=== PATIENT | female | born 1975 | race African-American/Black ===

== ENCOUNTER 2022-06-26 20:21 | Emergency (ER) | payer MEDICAID, OTHER ==
[~2022-06-26] VITALS: Ht 157.5 cm; Wt 82.0 kg
[2022-06-26 21:48] VITALS: BP_SYST 118
== END 2022-06-27 02:42 | disposition home or self-care (01) ==
LOC: ER 20:21
DX: Z00.00 Encounter for general adult medical examination without abnormal findings (principal); T76.21XA Adult sexual abuse, suspected, initial encounter
CPT/HCPCS: 99281

== ENCOUNTER 2023-04-22 20:52 | Emergency (ER) | payer OTHER ==
[~2023-04-22] VITALS: Ht 157.5 cm; Wt 86.0 kg
[2023-04-22 21:05] VITALS: BP 143/74; PULSE 91; RESP 15; TEMP 98.4; O2SAT 97
[2023-04-23 00:11] LABS: *AMPHETAMINES SCREEN URINE NEGATIVE (NEGATIVE); *BARBITURATES SCREEN URINE NEGATIVE (NEGATIVE); *BENZODIAZEPINES SCREEN URINE NEGATIVE (NEGATIVE); *COCAINE SCREEN URINE NEGATIVE (NEGATIVE); CANNABINOID URINE SCREEN PRESUMPTIVE POSITIVE (NEGATIVE); ECSTASY MDMA SCREEN URINE NEGATIVE (NEGATIVE); METHADONE URINE SCREEN Neg (NEGATIVE); OPIATES URINE SCREEN NEGATIVE (NEGATIVE); PHENCYCLIDINE URINE SCREEN NEGATIVE (NEGATIVE)
== END 2023-04-23 01:03 | disposition home or self-care (01) ==
LOC: ER 20:52
DX: R82.5 Elevated urine levels of drugs, medicaments and biological substances (principal)
CPT/HCPCS: 80305; 99283

== ENCOUNTER 2023-10-31 23:32 | Emergency (ER) | payer OTHER ==
[~2023-10-31] VITALS: Ht 157.5 cm; Wt 90.1 kg
[2023-10-31 23:36] VITALS: O2SAT 100
[2023-11-01 02:00] VITALS: BP 125/79; PULSE 78; RESP 16; TEMP 98.4
[2023-11-02] MEDS ORDERED: TRUV MT (19:54)
[2023-11-02] MEDS ORDERED: METR-167 MT (19:54)
[2023-11-02] MEDS ORDERED: DOXY100T2 MT (19:54)
[2023-11-02] MEDS ORDERED: RALT400T MT (19:54)
== END 2023-11-01 02:05 ==
LOC: ER 23:59
DX: R55 Syncope and collapse (principal); Z98.890 Other specified postprocedural states
CPT/HCPCS: 99283

== ENCOUNTER 2023-11-02 16:55 | Emergency (ER) | payer OTHER ==
[~2023-11-02] VITALS: Ht 167.6 cm; Wt 83.0 kg
[2023-11-02 16:59] VITALS: O2SAT 99
[2023-11-02] MEDS ORDERED: TRUV MT (19:54)
[2023-11-02] MEDS ORDERED: METR-167 MT (19:54)
[2023-11-02] MEDS ORDERED: DOXY100T2 MT (19:54)
[2023-11-02] MEDS ORDERED: RALT400T MT (19:54)
[2023-11-02] MEDS: CEFTRIAXONE SODIUM 500MG VIAL IM ONE (20:42)
[2023-11-02 21:37] LABS: BASOPHILS % 1.1 % (0.0-2.0); EOSINOPHILS % 2.7 % (0.0-5.0); HEMATOCRIT. 32.5 % (36.0-48.0); LYMPHOCYTES % 27.4 % (20.0-50.0); MEAN CORPUSCULAR HEMOGLOBIN 31.1 pg (28.0-32.0); MEAN CORPUSCULAR HGB CONC 33.9 g/dL (31.0-37.0); MEAN CORPUSCULAR VOLUME 91.8 fL (81.0-99.0); MEAN PLATELET VOLUME 7.1 fl (7.4-10.4); MONOCYTES % 6.7 % (2.0-8.0); NEUTROPHILS % 62.1 % (40.0-76.0); PLATELET 345 x1000/uL (130-400); RED BLOOD CELL COUNT 3.54 mill/uL (4.2-5.4); RED CELL DISTRIBUTION WIDTH 14.9 % (11.6-14.6); WHITE BLOOD COUNT 10.5 x1000/uL (4.5-11.0)
[2023-11-02 21:41] LABS: CHLORIDE 110 mEq/L (98-107); POTASSIUM 3.9 mEq/L (3.5-5.1); SODIUM 140 mEq/L (136-145)
[2023-11-02 21:42] LABS: CARBON DIOXIDE 24 mEq/L (21-32)
[2023-11-02 21:43] LABS: CALCIUM 9.4 mg/dL (8.7-10.4)
[2023-11-02 21:47] LABS: CREATININE 0.7 mg/dL (0.6-1.0); GLUCOSE 119 mg/dL (70-105)
[2023-11-02 21:48] LABS: UREA NITROGEN BLOOD 9 mg/dL (9-23)
[2023-11-02 21:49] LABS: ALANINE AMINOTRANSFERASE 12 IU/L (10-49); ASPARTATE AMINOTRANSFERASE 16 IU/L (<34)
[2023-11-02 21:50] LABS: BILIRUBIN DIRECT < 0.1 mg/dL (<=3.0); BILIRUBIN TOTAL 0.2 mg/dL (0.1-1.0); PROTEIN TOTAL 6.3 g/dL (6.0-8.3)
[2023-11-02 22:05] LABS: HEPATITIS B SURFACE ANTIGEN NEGATIVE (Negative)
[2023-11-02 22:07] LABS: HCG SCREEN NEGATIVE
[2023-11-02 22:26] LABS: HEPATITIS A AB IGM NEGATIVE (Negative)
[2023-11-02 22:27] LABS: HEPATITIS B CORE AB IGM NEGATIVE (Negative); HEPATITIS C AB NON REACTIVE (Neg) (Negative)
[2023-11-02 22:45] VITALS: BP 133/65; PULSE 78; RESP 17; TEMP 98.4
== END 2023-11-02 22:50 | disposition home or self-care (01) ==
LOC: ER 16:55
DX: T74.21XA Adult sexual abuse, confirmed, initial encounter (principal); R68.89 Other general symptoms and signs; X58.XXXA Exposure to other specified factors, initial encounter
CPT/HCPCS: 80076; 80048; 84703; 85025; 87340; 86592; 36415; 86705; 86709; 96372; 99283; J0696; Z7610

== ENCOUNTER 2023-11-11 04:23 | Emergency (ER) | payer OTHER ==
[~2023-11-11] VITALS: Ht 157.5 cm; Wt 100.0 kg
[~2023-11-11 04:23] MED LIST: DOXY100T2 MT; METR-167 MT; RALT400T MT; TRUV MT
[2023-11-11 04:46] VITALS: BP 125/51; PULSE 72; RESP 16; TEMP 98.3; O2SAT 97
[2023-11-11] MEDS ORDERED: DIPH28.33 TP (05:59)
== END 2023-11-11 06:17 | disposition home or self-care (01) ==
LOC: ER 04:33
DX: L50.9 Urticaria, unspecified (principal)
CPT/HCPCS: 99282

== ENCOUNTER 2023-11-19 06:18 | Emergency (ER) | payer OTHER ==
[~2023-11-19] VITALS: Ht 157.5 cm; Wt 91.0 kg
[~2023-11-19 06:18] MED LIST changes: +DIPH28.33 TP
[2023-11-19 06:31] VITALS: O2SAT 100
[2023-11-19 06:48] VITALS: BP 139/81; PULSE 81; RESP 14; TEMP 98.2; O2SAT 98
== END 2023-11-19 10:33 | disposition home or self-care (01) ==
LOC: ER 06:40
DX: T76.21XA Adult sexual abuse, suspected, initial encounter (principal); F12.10 Cannabis abuse, uncomplicated
CPT/HCPCS: 99281

== ENCOUNTER 2023-11-21 06:26 | Emergency (ER) | payer OTHER ==
[~2023-11-21] VITALS: Ht 160 cm; Wt 91.0 kg
[2023-11-21 06:29] VITALS: BP 120/75; O2SAT 96
[2023-11-21 06:30] VITALS: PULSE 100; RESP 16; O2SAT 99
[2023-11-21 07:14] VITALS: TEMP 98.5
[2023-11-21] MEDS: ACETAMINOPHEN 325MG TABLET PO ONE (07:14)
== END 2023-11-21 09:12 | disposition home or self-care (01) ==
LOC: ER 06:26
DX: R21 Rash and other nonspecific skin eruption (principal); F12.10 Cannabis abuse, uncomplicated; Z79.899 Other long term (current) drug therapy; Z91.410 Personal history of adult physical and sexual abuse
CPT/HCPCS: 99282

== ENCOUNTER 2024-05-22 15:39 | Emergency (ER) | payer OTHER ==
[~2024-05-22] VITALS: Ht 167.6 cm; Wt 90.7 kg
[2024-05-22 15:40] VITALS: O2SAT 99
[2024-05-22 15:44] VITALS: BP 137/89; PULSE 78; RESP 16; TEMP 36.9; O2SAT 98
[2024-05-22 17:09] LABS: CLARITY URINE CLEAR (CLEAR); COLOR URINE YELLOW (YELLOW); GLUCOSE URINE NEGATIVE (NEGATIVE); KETONES URINE NEGATIVE (NEGATIVE); LEUKOCYTE ESTERASE URINE NEGATIVE (NEGATIVE); NITRITE URINE NEGATIVE (NEGATIVE); OCCULT BLOOD URINE NEGATIVE (NEGATIVE); PROTEIN URINE NEGATIVE (NEGATIVE); SPECIFIC GRAVITY URINE 1.004 (1.005-1.030); UROBILINOGEN URINE 0.2 E.U./dL (0.2-1.0)
[2024-05-22 17:18] LABS: BASOPHILS % 1.1 % (0.0-2.0); EOSINOPHILS % 1.1 % (0.0-5.0); HEMATOCRIT. 33.7 % (36.0-48.0); HEMOGLOBIN. 11.1 g/dL (12.0-16.0); LYMPHOCYTES % 26.7 % (20.0-50.0); MEAN CORPUSCULAR HEMOGLOBIN 28.9 pg (28.0-32.0); MEAN CORPUSCULAR VOLUME 87.6 fL (81.0-99.0); MEAN PLATELET VOLUME 6.8 fl (7.4-10.4); MONOCYTES % 6.6 % (2.0-8.0); NEUTROPHILS % 64.5 % (40.0-76.0); PLATELET 468 x1000/uL (130-400); RED BLOOD CELL COUNT 3.84 mill/uL (4.2-5.4); RED CELL DISTRIBUTION WIDTH 16.4 % (11.6-14.6); WHITE BLOOD COUNT 10.4 x1000/uL (4.5-11.0)
[2024-05-22 17:25] LABS: CHLORIDE 107 mEq/L (98-107); POTASSIUM 3.4 mEq/L (3.5-5.1); SODIUM 142 mEq/L (136-145)
[2024-05-22 17:26] LABS: CALCIUM 9.5 mg/dL (8.7-10.4); CARBON DIOXIDE 28 mEq/L (21-32)
[2024-05-22 17:31] LABS: CREATININE 0.8 mg/dL (0.6-1.0); GLUCOSE 84 mg/dL (70-105); UREA NITROGEN BLOOD 7 mg/dL (9-23)
[2024-05-22 17:32] LABS: ALANINE AMINOTRANSFERASE 19 IU/L (10-49)
[2024-05-22 17:33] LABS: ALBUMIN 4.4 g/dL (3.2-4.8); ASPARTATE AMINOTRANSFERASE 20 IU/L (<34); BILIRUBIN TOTAL 0.3 mg/dL (0.1-1.0); PROTEIN TOTAL 7.3 g/dL (6.0-8.3)
[2024-05-22 17:38] LABS: BILIRUBIN DIRECT < 0.1 mg/dL (<=3.0)
[2024-05-22 17:59] LABS: HEPATITIS B SURFACE ANTIGEN NEGATIVE (Negative)
[2024-05-22 18:01] LABS: HIV 1/2 AB P24AG Negative (Negative)
[2024-05-22 18:19] LABS: HEPATITIS A AB IGM NEGATIVE (Negative); HEPATITIS B CORE AB IGM NEGATIVE (Negative); HEPATITIS C AB NON REACTIVE (Neg) (Negative)
[2024-05-22] MEDS ORDERED: METR-167 MT (18:49)
[2024-05-22] MEDS ORDERED: TRUV MT (18:49)
[2024-05-22] MEDS ORDERED: RALT400T MT (18:49)
[2024-05-22] MEDS ORDERED: DOXY100T2 MT (18:49)
[2024-05-22] MEDS: CEFTRIAXONE SODIUM 500MG VIAL IM ONE (19:09)
== END 2024-05-22 19:11 | disposition home or self-care (01) ==
LOC: ER 15:39
DX: T76.21XA Adult sexual abuse, suspected, initial encounter (principal); F12.90 Cannabis use, unspecified, uncomplicated; Z79.899 Other long term (current) drug therapy; Z79.624 Long term (current) use of inhibitors of nucleotide synthesis; Y08.89XA Assault by other specified means, initial encounter; Y93.89 Activity, other specified; Y92.89 Other specified places as the place of occurrence of the external cause; Y99.8 Other external cause status
CPT/HCPCS: 99283; 86592; 80076; 80048; 81003; 81025; 85025; 87340; 36415; 86709; 96372; 86705; J0696

== ENCOUNTER 2024-05-24 12:38 | Emergency (ER) | payer OTHER ==
[~2024-05-24] VITALS: Ht 167.6 cm; Wt 91.0 kg
[2024-05-24 12:57] VITALS: O2SAT 98
[2024-05-24] MEDS ORDERED: BISA-81 PO (13:28)
[2024-05-24] MEDS ORDERED: HYDR26CR2 TP (13:28)
[2024-05-24] MEDS ORDERED: LEVO1.5T37 PO (13:37)
[2024-05-24 15:08] VITALS: BP 112/84; PULSE 89; RESP 18; TEMP 36.7; O2SAT 98
[2024-05-24 15:21] LABS: CLARITY URINE CLEAR (CLEAR); COLOR URINE YELLOW (YELLOW); GLUCOSE URINE NEGATIVE (NEGATIVE); KETONES URINE NEGATIVE (NEGATIVE); LEUKOCYTE ESTERASE URINE NEGATIVE (NEGATIVE); NITRITE URINE NEGATIVE (NEGATIVE); OCCULT BLOOD URINE NEGATIVE (NEGATIVE); PROTEIN URINE NEGATIVE (NEGATIVE); SPECIFIC GRAVITY URINE 1.009 (1.005-1.030); UROBILINOGEN URINE 0.2 E.U./dL (0.2-1.0)
[2024-05-24 15:40] LABS: *AMPHETAMINES SCREEN URINE PRESUMPTIVE POSITIVE (NEGATIVE); *BARBITURATES SCREEN URINE NEGATIVE (NEGATIVE); *BENZODIAZEPINES SCREEN URINE NEGATIVE (NEGATIVE); *COCAINE SCREEN URINE NEGATIVE (NEGATIVE)
[2024-05-24 15:41] LABS: CANNABINOID URINE SCREEN PRESUMPTIVE POSITIVE (NEGATIVE); ECSTASY MDMA SCREEN URINE NEGATIVE (NEGATIVE); METHADONE URINE SCREEN NEGATIVE (NEGATIVE); OPIATES URINE SCREEN NEGATIVE (NEGATIVE); PHENCYCLIDINE URINE SCREEN NEGATIVE (NEGATIVE)
== END 2024-05-24 15:08 | disposition home or self-care (01) ==
LOC: ER 12:38
DX: K62.89 Other specified diseases of anus and rectum (principal); F12.90 Cannabis use, unspecified, uncomplicated; Z79.624 Long term (current) use of inhibitors of nucleotide synthesis; Z79.3 Long term (current) use of hormonal contraceptives; Z79.899 Other long term (current) drug therapy
CPT/HCPCS: 80305; 81003; 99283

== ENCOUNTER 2024-06-12 00:56 | Emergency (ER) | payer OTHER ==
[~2024-06-12] VITALS: Ht 157.5 cm; Wt 91.0 kg
[~2024-06-12 00:56] MED LIST changes: +BISA-81 PO; +HYDR26CR2 TP; +LEVO1.5T37 PO
[2024-06-12 01:02] VITALS: O2SAT 100
[2024-06-12 01:21] VITALS: TEMP 36.9; O2SAT 100
[2024-06-12] MEDS ORDERED: KETOROLAC 30MG/ML VIAL IM ONE (01:45)
[2024-06-12] MEDS ORDERED: METHOCARBAMOL 500MG TABLET PO ONE (01:45)
[2024-06-12] MEDS ORDERED: IBUP-2029 MT (01:56)
[2024-06-12] MEDS ORDERED: METH-653 MT (01:56)
[2024-06-12 02:23] VITALS: BP 128/86; PULSE 77; RESP 14
[2024-06-12] MEDS: METHOCARBAMOL 500MG TABLET PO NR (02:23)
[2024-06-12] MEDS: KETOROLAC 30MG/ML VIAL IM NR (02:23)
== END 2024-06-12 17:45 | disposition home or self-care (01) ==
LOC: ER 00:56
DX: S29.012A Strain of muscle and tendon of back wall of thorax, initial encounter (principal); F12.10 Cannabis abuse, uncomplicated; Z79.899 Other long term (current) drug therapy; X58.XXXA Exposure to other specified factors, initial encounter; Y93.89 Activity, other specified; Y92.89 Other specified places as the place of occurrence of the external cause; Y99.8 Other external cause status
CPT/HCPCS: 99283; 96372; J1885

== ENCOUNTER 2024-06-24 19:47 | Emergency (ER) | payer OTHER ==
[~2024-06-24] VITALS: Ht 165.1 cm; Wt 75.0 kg
[~2024-06-24 19:47] MED LIST changes: +IBUP-2029 MT; +METH-653 MT
[2024-06-24 19:59] VITALS: O2SAT 100
[2024-06-24 20:00] VITALS: TEMP 37.1; O2SAT 99
[2024-06-24 23:29] VITALS: BP 135/88; PULSE 121; RESP 22
== END 2024-06-24 23:33 | disposition home or self-care (01) ==
LOC: ER 19:47
DX: Z00.8 Encounter for other general examination (principal); F12.90 Cannabis use, unspecified, uncomplicated; Z79.899 Other long term (current) drug therapy; Z79.624 Long term (current) use of inhibitors of nucleotide synthesis; Z79.3 Long term (current) use of hormonal contraceptives
CPT/HCPCS: 71046; 99283

== ENCOUNTER 2024-07-14 00:55 | Emergency (ER) | payer OTHER ==
[~2024-07-14] VITALS: Ht 157.5 cm; Wt 85.9 kg
[2024-07-14 01:17] VITALS: O2SAT 100
[2024-07-14] MEDS ORDERED: LEVO1.5T37 PO (04:25)
[2024-07-14] MEDS ORDERED: TRUV MT (04:25)
[2024-07-14] MEDS ORDERED: DOXY100T2 MT (04:25)
[2024-07-14] MEDS ORDERED: METR-167 MT (04:25)
[2024-07-14] MEDS ORDERED: RALT400T MT (04:25)
[2024-07-14 05:07] LABS: *AMPHETAMINES SCREEN URINE NEGATIVE (NEGATIVE); *BARBITURATES SCREEN URINE NEGATIVE (NEGATIVE); *BENZODIAZEPINES SCREEN URINE NEGATIVE (NEGATIVE); *COCAINE SCREEN URINE NEGATIVE (NEGATIVE)
[2024-07-14 05:08] LABS: CANNABINOID URINE SCREEN PRESUMPTIVE POSITIVE (NEGATIVE); ECSTASY MDMA SCREEN URINE NEGATIVE (NEGATIVE); METHADONE URINE SCREEN NEGATIVE (NEGATIVE); OPIATES URINE SCREEN NEGATIVE (NEGATIVE); PHENCYCLIDINE URINE SCREEN NEGATIVE (NEGATIVE)
[2024-07-14] MEDS: DOXYCYCLINE HYCLATE 100MG CAPSULE PO ONE (05:13)
[2024-07-14] MEDS: CEFTRIAXONE SODIUM 500MG VIAL IM ONE (05:13)
[2024-07-14 05:45] LABS: CARBON DIOXIDE 22 mEq/L (21-32); CHLORIDE 110 mEq/L (98-107); POTASSIUM 3.5 mEq/L (3.5-5.1); SODIUM 140 mEq/L (136-145)
[2024-07-14 05:46] LABS: CALCIUM 9.2 mg/dL (8.7-10.4)
[2024-07-14 05:50] LABS: CREATININE 0.7 mg/dL (0.6-1.0)
[2024-07-14 05:51] LABS: GLUCOSE 122 mg/dL (70-105); UREA NITROGEN BLOOD 6 mg/dL (9-23)
[2024-07-14 05:52] LABS: ALANINE AMINOTRANSFERASE 13 IU/L (10-49); ALBUMIN 4.4 g/dL (3.2-4.8); ASPARTATE AMINOTRANSFERASE 18 IU/L (<34)
[2024-07-14 05:53] LABS: BILIRUBIN TOTAL 0.3 mg/dL (0.1-1.0); PROTEIN TOTAL 7.4 g/dL (6.0-8.3)
[2024-07-14 06:29] VITALS: BP 114/68; PULSE 65; RESP 14; TEMP 37.3; O2SAT 99
[2024-07-14] MEDS: PENICILLIN G BENZATHINE 2,400,000 UNITS/4ML SYR IM NR (06:38)
== END 2024-07-14 06:57 | disposition home or self-care (01) ==
LOC: ER 00:55
DX: T74.21XA Adult sexual abuse, confirmed, initial encounter (principal); F12.90 Cannabis use, unspecified, uncomplicated; Z79.899 Other long term (current) drug therapy; X58.XXXA Exposure to other specified factors, initial encounter
CPT/HCPCS: 99284; 80053; 80305; 81025; 36415; 96372; J0561; J0696

== ENCOUNTER 2024-08-24 06:22 | Emergency (ER) | payer OTHER ==
[~2024-08-24] VITALS: Ht 157.5 cm; Wt 87.0 kg
[2024-08-24 07:17] VITALS: O2SAT 99
[2024-08-24 11:43] VITALS: BP 131/75; PULSE 82; RESP 18; TEMP 36.8; O2SAT 99
[2024-10-10] MEDS ORDERED: IBUP-2030 PO (06:50)
[2024-10-10] MEDS ORDERED: AMOX1TAB16 PO (06:50)
[2024-10-10] MEDS ORDERED: IBUP-2029 MT (11:38)
== END 2024-08-24 11:45 | disposition home or self-care (01) ==
LOC: ER 06:22
DX: T76.21XA Adult sexual abuse, suspected, initial encounter (principal); F12.90 Cannabis use, unspecified, uncomplicated; Z79.899 Other long term (current) drug therapy; X58.XXXA Exposure to other specified factors, initial encounter; Y93.89 Activity, other specified; Y92.89 Other specified places as the place of occurrence of the external cause; Y99.8 Other external cause status
CPT/HCPCS: 99281; 99283

== ENCOUNTER 2024-10-10 08:58 | Emergency (ER) | payer OTHER ==
[~2024-10-10] VITALS: Ht 165.1 cm; Wt 86.0 kg
[~2024-10-10 08:58] MED LIST changes: +AMOX1TAB16 PO; +IBUP-1455 MT; -IBUP-2029 MT; +IBUP-2030 PO
[2024-10-10 09:00] VITALS: O2SAT 100
[2024-10-10] MEDS: ACETAMINOPHEN 325MG TABLET PO ONE (09:45)
[2024-10-10] MEDS ORDERED: IBUP-1455 MT (11:38)
[2024-10-10 12:18] VITALS: BP 125/73; PULSE 73; RESP 18; TEMP 36.7; O2SAT 100
[2024-10-19] MEDS ORDERED: EMTR1TAB20 MT (18:47)
== END 2024-10-10 12:20 | disposition home or self-care (01) ==
LOC: ER 09:07
DX: S01.21XA Laceration without foreign body of nose, initial encounter (principal); F12.10 Cannabis abuse, uncomplicated; Z79.899 Other long term (current) drug therapy; W01.0XXA Fall on same level from slipping, tripping and stumbling without subsequent striking against object, initial encounter; Y93.89 Activity, other specified; Y92.89 Other specified places as the place of occurrence of the external cause; Y99.8 Other external cause status
CPT/HCPCS: 70486; 73600; 81025; 99283; 99284

== ENCOUNTER 2024-10-19 12:27 | Emergency (ER) | payer OTHER ==
[~2024-10-19] VITALS: Ht 167.6 cm; Wt 82.0 kg
[~2024-10-19 12:27] MED LIST changes: -IBUP-1455 MT; +IBUP-2029 MT
[2024-10-19 12:28] VITALS: O2SAT 98
[2024-10-19 12:37] VITALS: BP 119/62; PULSE 78; RESP 18; TEMP 36.9; O2SAT 97
[2024-10-19] MEDS ORDERED: LEVO1.5T37 MT (18:47)
[2024-10-19] MEDS ORDERED: EMTR1TAB11 MT (18:47)
[2024-10-19] MEDS ORDERED: DOXY150T9 MT (18:49)
[2024-10-19] MEDS: CEFTRIAXONE SODIUM 500MG VIAL IM ONE (21:26)
[2024-10-19] MEDS: DOXYCYCLINE HYCLATE 100MG CAPSULE PO ONE (21:26)
== END 2024-10-19 21:49 | disposition home or self-care (01) ==
LOC: ER 12:27
DX: T74.21XA Adult sexual abuse, confirmed, initial encounter (principal); F12.90 Cannabis use, unspecified, uncomplicated; Z98.890 Other specified postprocedural states; Z79.624 Long term (current) use of inhibitors of nucleotide synthesis; Z79.3 Long term (current) use of hormonal contraceptives; Z79.1 Long term (current) use of non-steroidal anti-inflammatories (NSAID); Y92.89 Other specified places as the place of occurrence of the external cause
CPT/HCPCS: 99283; 96372; J0696

== ENCOUNTER 2024-11-19 01:49 | Emergency (ER) | payer OTHER ==
[~2024-11-19] VITALS: Ht 167.6 cm; Wt 104.0 kg
[~2024-11-19 01:49] MED LIST changes: +DOXY150T9 MT; +EMTR1TAB11 MT; +LEVO1.5T37 MT
[2024-11-19 01:53] VITALS: BP 109/63; PULSE 75; RESP 16; TEMP 36.6; O2SAT 99
== END 2024-11-19 02:40 | disposition home or self-care (01) ==
LOC: ER 01:49
DX: M79.10 Myalgia, unspecified site (principal); F12.10 Cannabis abuse, uncomplicated; Z79.899 Other long term (current) drug therapy; Z98.890 Other specified postprocedural states; Y04.0XXA Assault by unarmed brawl or fight, initial encounter; Y93.89 Activity, other specified; Y92.89 Other specified places as the place of occurrence of the external cause; Y99.8 Other external cause status
CPT/HCPCS: 99283